=== PATIENT | male | born 1950 | race Caucasian/White ===

== ENCOUNTER 2020-01-22 05:49 | Day surgery (SDC) | payer MEDICARE ==
[~2020-01-22] VITALS: Ht 172.7 cm; Wt 73.5 kg
[2020-01-22] MEDS ORDERED: SODIUM CHLORIDE 0.9% 1,000 ML IV SCH (06:12)
[2020-01-22 06:39] VITALS: BP 159/77
[2020-01-22] MEDS ORDERED: MILK THISTLE PO (06:48)
[2020-01-22] MEDS ORDERED: MULT-658 PO (06:48)
[2020-01-22] MEDS ORDERED: VIT1TABL34 PO (06:48)
[2020-01-22] MEDS ORDERED: VITAMIN C PO (06:48)
[2020-01-22] MEDS ORDERED: VITAMIN E PO (06:48)
[2020-01-22] MEDS ORDERED: ACET325T14 PO (06:48)
[2020-01-22] MEDS ORDERED: VITAMIN B12 PO (06:48)
[2020-01-22] MEDS ORDERED: VITAMIN D3 PO (06:48)
[2020-01-22] MEDS ORDERED: OMNIPAQUE 350 MG/ML, 100ML BOTTLE ONE (07:58)
[2020-01-22] MEDS ORDERED: FENTANYL PF 100 MCG/2ML ONE (08:19)
[2020-01-22] MEDS ORDERED: MIDAZOLAM 1 MG/ML, 5ML ONE ×2 (08:19)
[2020-01-22] MEDS ORDERED: NALOXONE 1 MG/ML, 2ML ONE (08:19)
[2020-01-22] MEDS ORDERED: FLUMAZENIL 0.1 MG/1 ML, 5ML ONE (08:19)
== END 2020-01-22 11:00 | disposition home or self-care (01) ==
LOC: OUT 05:49 → EDSTATUS 07:30 → OUT 11:00
PROVIDERS: ATTEND Internal Medicine Gastroenterology
DX: K83.01 Primary sclerosing cholangitis (principal); C22.7 Other specified carcinomas of liver; Z79.82 Long term (current) use of aspirin; Z79.899 Other long term (current) drug therapy; Z85.038 Personal history of other malignant neoplasm of large intestine; Z90.49 Acquired absence of other specified parts of digestive tract
CPT/HCPCS: 47000; 74170; 77012; 88307; 88313; 88341; 88342; 99156; 99157; J2250; J3010; J7030; Q9967; J2310

== ENCOUNTER → 2020-02-19 | Outpatient (CLI) | payer MEDICARE, OTHER ==
[~2020-02-19] MED LIST: ACET325T14 PO; MILK THISTLE PO; MULT-658 PO; VIT1TABL34 PO; VITAMIN B12 PO; VITAMIN C PO; VITAMIN D3 PO; VITAMIN E PO
== END | disposition home or self-care (01) ==
LOC: PETCFH 12:08
PROVIDERS: ATTEND Surgery
DX: C22.1 Intrahepatic bile duct carcinoma (principal); R16.0 Hepatomegaly, not elsewhere classified
CPT/HCPCS: 78815; A9552

== ENCOUNTER 2020-03-05 07:32 | Outpatient (CLI) | payer MEDICARE, OTHER | END 2020-03-05 23:59 | disposition home or self-care (01) | LOC: ROC 07:32 | PROVIDERS: ATTEND Radiology Radiation Oncology | DX: Z08 Encounter for follow-up examination after completed treatment for malignant neoplasm (principal); C22.1 Intrahepatic bile duct carcinoma; Z90.49 Acquired absence of other specified parts of digestive tract; Z79.82 Long term (current) use of aspirin; Z85.068 Personal history of other malignant neoplasm of small intestine; Z79.899 Other long term (current) drug therapy | CPT/HCPCS: G0463 ==

== ENCOUNTER → 2020-05-22 | Outpatient (CLI) | payer MEDICARE, OTHER ==
[~2020-05-22] MED LIST changes: +OMNIPAQUE 350 MG/ML, 100ML BOTTLE ONE
== END | disposition home or self-care (01) ==
LOC: CFH 09:26
PROVIDERS: ATTEND Internal Medicine Hematology & Oncology
DX: C22.1 Intrahepatic bile duct carcinoma (principal); K72.90 Hepatic failure, unspecified without coma; J98.4 Other disorders of lung; M62.08 Separation of muscle (nontraumatic), other site; J98.11 Atelectasis; R14.0 Abdominal distension (gaseous)
CPT/HCPCS: 71260; 74177; Q9967

== ENCOUNTER 2020-06-13 07:32 | Outpatient (CLI) | payer MEDICARE, OTHER ==
[~2020-06-13 07:32] MED LIST changes: -OMNIPAQUE 350 MG/ML, 100ML BOTTLE ONE
== END 2020-06-13 23:59 | disposition home or self-care (01) ==
LOC: ROC 07:32
PROVIDERS: ATTEND Radiology Radiation Oncology
DX: C22.1 Intrahepatic bile duct carcinoma (principal)
CPT/HCPCS: G0463

== ENCOUNTER → 2020-07-11 | Outpatient (CLI) | payer MEDICARE, OTHER ==
[~2020-07-11] MED LIST changes: +OMNIPAQUE 350 MG/ML, 100ML BOTTLE ONE
== END | disposition home or self-care (01) ==
LOC: CFH 09:01
PROVIDERS: ATTEND Radiology Radiation Oncology
DX: C22.1 Intrahepatic bile duct carcinoma (principal); K45.8 Other specified abdominal hernia without obstruction or gangrene
CPT/HCPCS: 74170; Q9967

== ENCOUNTER 2020-07-16 07:56 | Outpatient (CLI) | payer MEDICARE, OTHER ==
[~2020-07-16 07:56] MED LIST changes: -OMNIPAQUE 350 MG/ML, 100ML BOTTLE ONE
== END 2020-07-16 23:59 | disposition home or self-care (01) ==
LOC: ROC 07:56
PROVIDERS: ATTEND Radiology Radiation Oncology
DX: C22.1 Intrahepatic bile duct carcinoma (principal)
CPT/HCPCS: G0463

== ENCOUNTER → 2020-08-12 | Outpatient (CLI) | payer MEDICARE, OTHER | END | disposition home or self-care (01) | LOC: ROC 08:06 | PROVIDERS: ATTEND Radiology Radiation Oncology | DX: Z08 Encounter for follow-up examination after completed treatment for malignant neoplasm (principal); Z85.09 Personal history of malignant neoplasm of other digestive organs | CPT/HCPCS: G2012 ==

== ENCOUNTER 2020-10-14 07:32 | Outpatient (CLI) | payer MEDICARE, OTHER ==
[2020-09-15 11:38] LABS: BASOPHILS % (AUTO) 0 % (0-1); EOSINOPHILS % (AUTO) 1 % (1-7); LYMPHOCYTES % (AUTO) 3 % (22-44); MEAN CORPUSCULAR HEMOGLOBIN 33.5 pg (27.5-34.5); MEAN CORPUSCULAR HGB CONC 33.9 g/dL (33.2-36.2); MONOCYTES % (AUTO) 19 % (2-9); NEUTROPHILS % (AUTO) 77 % (42-75); PLATELET COUNT 151 x10^3/uL (130-400); RED CELL DISTRIBUTION WIDTH 17.8 % (9.4-14.8)
[2020-09-15 11:49] LABS: ALBUMIN 3.6 g/dL (3.4-5.0); ANION GAP 8 mmol/L (5-15); CALCIUM 9.2 mg/dL (8.5-10.1); CHLORIDE 109 mmol/L (98-107)
[2020-09-15 11:52] LABS: ALANINE AMINOTRANSFERASE 44 U/L (12-78); ALKALINE PHOSPHATASE 440 U/L (45-117); BILIRUBIN,TOTAL 1.2 mg/dL (0.2-1.0); TOTAL PROTEIN 8.2 g/dL (6.4-8.2)
[2020-09-15 12:42] LABS: <PLATELET ESTIMATE> ADEQUATE; <PLT MORPHOLOGY> NORMAL PLT MORPH; ANISOCYTOSIS 1+; MD MORPH REVIEW ONLY
[~2020-10-14 07:32] MED LIST changes: +SODIUM CHLORIDE 0.9% 1,000ML ONE
[2020-11-11] MEDS ORDERED: CELE100C PO (16:57)
[2020-11-11] MEDS ORDERED: TRAZ-175 PO (16:57)
[2020-11-11] MEDS ORDERED: CIPR500S2 PO (16:57)
[2020-11-11] MEDS ORDERED: CELE200C PO (17:27)
[2020-11-13] MEDS ORDERED: OMEP-110 PO (12:40)
[2020-11-13] MEDS ORDERED: SUCR1TAB33 PO (12:40)
[2020-11-13] MEDS ORDERED: HYDR25SU3 PR (12:40)
[2020-11-13] MEDS ORDERED: FERR324T5 PO (12:49)
== END 2020-10-14 23:59 | disposition home or self-care (01) ==
LOC: ROC 07:32
PROVIDERS: ATTEND Radiology Radiation Oncology
DX: C22.1 Intrahepatic bile duct carcinoma (principal)
CPT/HCPCS: 36415; 77386; 80053; 83735; 85025; G2012; G2251; J7030

== ENCOUNTER → 2020-10-24 | Outpatient (CLI) | payer MEDICARE, OTHER ==
[~2020-10-24] MED LIST changes: -SODIUM CHLORIDE 0.9% 1,000ML ONE
[2020-10-24 12:52] LABS: CREATININE 1.09 mg/dL (0.7-1.3)
== END | disposition home or self-care (01) ==
LOC: LAB 12:25
PROVIDERS: ATTEND Radiology Radiation Oncology
DX: Z01.812 Encounter for preprocedural laboratory examination (principal); T50.8X4A Poisoning by diagnostic agents, undetermined, initial encounter; C22.1 Intrahepatic bile duct carcinoma
CPT/HCPCS: 36415; 82565; 84520

== ENCOUNTER → 2020-10-28 | Outpatient (CLI) | payer MEDICARE, OTHER ==
[~2020-10-28] MED LIST changes: +OMNIPAQUE 350 MG/ML, 100ML BOTTLE ONE
== END | disposition home or self-care (01) ==
LOC: CFH 09:34
PROVIDERS: ATTEND Radiology Radiation Oncology
DX: C22.1 Intrahepatic bile duct carcinoma (principal); K72.90 Hepatic failure, unspecified without coma; R18.8 Other ascites; I82.890 Acute embolism and thrombosis of other specified veins
CPT/HCPCS: 74170; Q9967

== ENCOUNTER → 2020-10-29 | Outpatient (CLI) | payer MEDICARE, OTHER ==
[~2020-10-29] MED LIST changes: -OMNIPAQUE 350 MG/ML, 100ML BOTTLE ONE
== END | disposition home or self-care (01) ==
LOC: ROC 07:30
PROVIDERS: ATTEND Radiology Radiation Oncology
DX: C22.1 Intrahepatic bile duct carcinoma (principal); I82.890 Acute embolism and thrombosis of other specified veins; R18.8 Other ascites
CPT/HCPCS: G2012

== ENCOUNTER 2020-11-21 08:29 | Outpatient (CLI) | payer MEDICARE, OTHER ==
[~2020-11-21 08:29] MED LIST changes: +CELE100C PO; +CELE200C PO; +CIPR500S2 PO; +FERR324T5 PO; +HYDR25SU3 PR; +OMEP-110 PO; +SUCR1TAB33 PO; +TRAZ-175 PO
[2020-11-21] MEDS ORDERED: LIDOCAINE 1%, 10ML ONE (08:43)
== END 2020-11-21 23:59 | disposition home or self-care (01) ==
LOC: RAD 08:29
PROVIDERS: ATTEND Internal Medicine Hematology & Oncology
DX: R18.8 Other ascites (principal); C22.1 Intrahepatic bile duct carcinoma
CPT/HCPCS: 49083